=== PATIENT | female | born 1960 | race Asian ===

== ENCOUNTER → 2018-02-22 | Emergency (ER) | payer OTHER ==
[~2018-02-22] MED LIST: FAMOTIDINE 20 MG/50 ML IVPB 20 MG/50 ML MG IVPB ONE; MAG HYDROX/AL HYDROX/SIMETH -MYLANTA- ORAL SUSPENSION PO ONE; MAG HYDROX/AL HYDROX/SIMETH 30 ML UNIT-DOSE CUP ONE; MORPHINE SULFATE 2 MG/ML VIAL ONE; SODIUM CHLORIDE 1,000 ML IV STA; morphine CARPU-JECT 2 MG/1 ML DISP.SYRIN IVPUSH ONE
[2018-02-22 02:56] VITALS: PULSE 78; TEMP 98.5; BMI 26.4
[2018-02-22 03:05] VITALS: BP 145/88
--- NOTE | 2018-02-22 04:12 | PDOC ---
History of Present Illness - General Chief Complaint: Pain, Acute Stated Complaint: ABD PAIN Time Seen by Provider: 02/22/18 03:50 History Source: Patient Exam Limitations: No Limitations - History of Present Illness Travel History: No Initial Comments: 02/22/18 05:11 Best Contact: PCP:Dr. 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 Patient states shortly after having half heard dinner, she started having sharp 8/10 nonradiating intermittent discomfort to the epigastric and right lower quadrant. The pain is exacerbated on touch and alleviated at rest minimally. Patient denies nausea/vomiting, fever /chills/diarrhea, headache, dizziness or lightheadedness. Patient denies chest/ back pain, neck pain/stiffness, flank pains, urinary symptoms. Past History - Past Medical History Allergies/Adverse Reactions: Allergies Allergy/AdvReac Type Severity Reaction Status Date / Time No Known Allergies Allergy Verified 02/22/18 04:17 - Suicide/Smoking/Psychosocial Hx Smoking History: Never smoked Information on smoking cessation initiated: No Review of Systems - Review of Systems Able to Perform ROS?: Yes Comments:: 02/22/18 05:08 CONSTITUTIONAL: Absent: fever, chills, diaphoresis, generalized weakness, malaise, loss of appetite HEENT: Absent: rhinorrhea, nasal congestion, throat pain, throat swelling, difficulty swallowing, mouth swelling, ear pain, eye pain, visual Changes CARDIOVASCULAR: Absent: chest pain, loss of consciousness, palpitations, irregular heart rate, peripheral edema RESPIRATORY: Absent: cough, shortness of breath, dyspnea with exertion, orthopnea, wheezing, stridor, hemoptysis GASTROINTESTINAL: +epigastric pain/RLQ pain Absent: abdominal distension, nausea, vomiting, diarrhea, constipation, melena , hematochezia GENITOURINARY: Absent: dysuria, frequency, urgency, hesitancy, hematuria, flank pain, genital pain MUSCULOSKELETAL: Absent: myalgia, arthralgia, joint swelling SKIN: Absent: rash, itching, pallor HEMATOLOGIC/IMMUNOLOGIC: Absent: easy bleeding, easy bruising, lymphadenopathy, frequent infections ENDOCRINE: Absent: unexplained weight gain, unexplained weight loss, heat intolerance, cold intolerance NEUROLOGIC: Absent: headache, focal weakness or paresthesias, dizziness, unsteady gait, seizure, mental status changes, bladder or bowel incontinence PSYCHIATRIC: Absent: anxiety, depression, suicidal or homicidal ideation, hallucinations. 02/22/18 05:09 02/22/18 05:40 Is the patient limited Sinhala proficient: No *Physical Exam - Vital Signs Last Vital Signs Temp Pulse Resp BP Pulse Ox 98.5 F 78 18 145/88 98 02/22/18 03:00 02/22/18 03:00 02/22/18 03:00 02/22/18 03:00 02/22/18 03:00 - Physical Exam Comments: 02/22/18 05:09 GENERAL: Well developed, well nourished. Awake and alert. No acute distress. HEENT: Normocephalic, atraumatic. PERRLA, EOMI. No conjunctival pallor. Sclera are non- icteric. Moist mucous membranes. Oropharynx is clear. NECK: Supple. Full ROM. No JVD. Carotid pulses 2+ and symmetric, without bruits. No thyromegaly. No lymphadenopathy. CARDIOVASCULAR: Regular rate and rhythm. No murmurs, rubs, or gallops. Distal pulses are 2+ and symmetric. PULMONARY: No evidence of respiratory distress. Lungs clear to auscultation bilaterally. No wheezing, rales or rhonchi. ABDOMINAL: +epigastric pain, RLQ pain Soft. Non-distended. No rebound or guarding. No organomegaly. Normoactive bowel sounds. MUSCULOSKELETAL Normal range of motion at all joints. No bony deformities or tenderness. No CVA tenderness. EXTREMITIES: No cyanosis. No clubbing. No edema. No calf tenderness. SKIN: Warm and dry. Normal capillary refill. No rashes. No jaundice. NEUROLOGICAL: Alert, awake, appropriate. Cranial nerves 2-12 intact. No deficits to light touch and temperature in face, upper extremities and lower extremities. No motor deficits in the in face, upper extremities and lower extremities. Normoreflexic in the upper and lower extremities. Normal speech. Toes are down- going bilaterally. Gait is normal without ataxia. PSYCHIATRIC: Cooperative. Good eye contact. Appropriate mood and affect. 02/22/18 05:40 Moderate Sedation - Procedure Monitoring Vital Signs: Procedure Monitoring Vital Signs Temperature 98.5 F 02/22/18 03:00 Pulse Rate 78 02/22/18 03:00 Respiratory Rate 18 02/22/18 03:00 Blood Pressure 145/88 02/22/18 03:00 O2 Sat by Pulse Oximetry (%) 98 02/22/18 03:00 Heart Score/ECG Review - History History: Slightly suspicious - Electrocardiogram EKG: Normal - Age Age: >/= 65 - Risk Factors Based on the list above the patient has:: 1-2 risk factors - Troponin Troponin: </= normal limit - Score Heart Score - Total: 3 ED Treatment Course - LABORATORY CBC & Chemistry Diagram: 02/22/18 04:16 02/22/18 04:16 - RADIOLOGY Radiograph Interpretation: 02/22/18 05:54 CT abd /pelvis with iv contrast: no acaute findings Progress Note - Progress Note Progress Note: 0507hrs: Re examined pt; pain on 05/25 epigastric and RLQ *DC/Admit/Observation/Transfer Diagnosis at time of Disposition: Abdominal pain Qualifiers: Abdominal location: right lower quadrant Qualified Code(s): R10.31 - Right lower quadrant pain - Discharge Dispostion Disposition: HOME Condition at time of disposition: Stable Decision to Admit order: No - Referrals Referrals: Jose C Welsh MD [Primary Care Provider] - Ignacio Maldonado MD [Staff Physician] - - Patient Instructions Printed Discharge Instructions: DI for Abdominal Pain-Adult Additional Instructions: Be sure to follow-up with your physician and machine hand listed on your discharge Avoid acidic food Avoid overeating Return back to the ER for severe/persistent/worsening or recurrent pain or any concerns you might have - Post Discharge Activity Forms/Work/School Notes: Back to Work
[2018-02-22 04:54] LABS: BASO % 0.8 % (0-2.0); EOS % 1.4 % (0-4.5); HEMATOCRIT 40.1 % (32.4-45.2); HEMOGLOBIN 13.2 GM/dL (10.7-15.3); MCH 29.2 pg (25.7-33.7); MCHC 32.8 g/dl (32.0-36.0); MEAN CELL VOLUME 88.8 fl (80-96); MONO % 8.6 % (3.8-10.2); NEUT % 64.2 % (42.8-82.8); PLATELET COUNT 255 K/MM3 (134-434); RBC 4.51 M/mm3 (3.60-5.2); RDW 13.5 % (11.6-15.6)
[2018-02-22 05:34] LABS: ALBUMIN 3.7 g/dl (3.4-5.0); ALK PHOS 83 U/L (45-117); ANION GAP 9 MMOL/L (8-16); BILIRUBIN,TOTAL 0.3 mg/dL (0.2-1); BLOOD UREA NITROGEN 17 mg/dL (7-18); CALCIUM 8.5 mg/dL (8.5-10.1); CHLORIDE 103 mmol/L (98-107); CO2 27 mmol/L (21-32); CREATININE 0.6 mg/dL (0.55-1.3); GLUCOSE,RANDOM 97 mg/dL (74-106); LIPASE 178 U/L (73-393); POTASSIUM 3.6 mmol/L (3.5-5.1); SGOT/AST 27 U/L (15-37); SGPT/ALT 37 U/L (13-61); SODIUM 140 mmol/L (136-145); TOT PROT 7.2 g/dl (6.4-8.2)
--- NOTE | 2018-02-22 21:21 | EKG ---
Test Reason : Blood Pressure : / mmHG Vent. Rate : 082 BPM Atrial Rate : 082 BPM P-R Int : 170 ms QRS Dur : 088 ms QT Int : 412 ms P-R-T Axes : 057 025 038 degrees QTc Int : 481 ms NORMAL SINUS RHYTHM MINIMAL VOLTAGE CRITERIA FOR LVH, MAY BE NORMAL VARIANT NONSPECIFIC ST ABNORMALITY PROLONGED QT ABNORMAL ECG WHEN COMPARED WITH ECG OF 14-DEC-2004 13:27, QT HAS LENGTHENED Confirmed by BLAZE SIFUENTES, GLO ([id number]) on 02/22/2018 9:20:57 PM Referred By: Confirmed By:GLO THAKUR MD
== END | disposition home or self-care (01) ==
LOC: JER 02:48
PROC: 3E033GC Introduction of Other Therapeutic Substance into Peripheral Vein, Percutaneous Approach (ICD-10-PCS; principal; 2018-02-22)
PROC: 3E033NZ Introduction of Analgesics, Hypnotics, Sedatives into Peripheral Vein, Percutaneous Approach (ICD-10-PCS; 2018-02-22)
DX: R10.31 Right lower quadrant pain (principal)
CPT/HCPCS: 36415; 74177-TC; 80053; 82550; 83690; 84484; 85025; 93005; 93010; 99283-25; J7030

== ENCOUNTER 2018-05-14 06:09 | Day surgery (SDC) | payer OTHER ==
[2018-05-13 09:22] VITALS: BMI 25.4
[~2018-05-14 06:09] MED LIST changes: +ACETAMINOPHEN 325 MG TABLET (FP) PO PRN; +BSS (NA/CA/MG/K) BALANCED SALT SOLUTION OPHTH SOLN 15 ML BOTTLE OD ONE; +CHONDROITIN SU A/HYALUR SOD 1 KIT IO ONE; +EPINEPHrine/PF 1 MG/1 ML (1:1,000) AMPULE SQ ONE; -FAMOTIDINE 20 MG/50 ML IVPB 20 MG/50 ML MG IVPB ONE; +LIDOCAINE HCL 1% PRESERVATIVE FREE - 30ML VIAL IO ONE; -MAG HYDROX/AL HYDROX/SIMETH -MYLANTA- ORAL SUSPENSION PO ONE; -MAG HYDROX/AL HYDROX/SIMETH 30 ML UNIT-DOSE CUP ONE; -MORPHINE SULFATE 2 MG/ML VIAL ONE; +POVIDONE-IODINE 5% OPHTHALMIC PREP 30 ML SOLUTION OD ONE; -SODIUM CHLORIDE 1,000 ML IV STA; +TETRACAINE 0.5% OPHTH SOLN 2 ML BOTTLE OD ONE; -morphine CARPU-JECT 2 MG/1 ML DISP.SYRIN IVPUSH ONE
[2018-05-14] MEDS ORDERED: KETOROLAC TROMETHAMINE 0.5% EYE DROP 1 DROP DROPS ONE (06:23)
[2018-05-14] MEDS ORDERED: CYCLOPENTOLATE HCL 1% OPHTH SOLN 2 ML BOTTLE ONE (06:23)
[2018-05-14] MEDS ORDERED: TROPICAMIDE 1% OPHTH SOLN 15 ML BOTTLE ONE (06:23)
[2018-05-14] MEDS ORDERED: OFLOXACIN 0.3% OPHTHALMIC SOLUTION 5 ML BOTTLE ONE (06:23)
[2018-05-14 06:30] VITALS: TEMP 97.9
[2018-05-14] MEDS: PHENYLEPHRINE 2.5% OPHTH SOLN 15 ML BOTTLE OP SCH ×3 (06:40→07:21)
[2018-05-14] MEDS: CYCLOPENTOLATE HCL 1% OPHTH SOLN 2 ML BOTTLE OP SCH ×3 (06:43→07:19)
[2018-05-14] MEDS: TROPICAMIDE 1% OPHTH SOLN 15 ML BOTTLE OP SCH ×3 (06:43→07:20)
[2018-05-14] MEDS: OFLOXACIN 0.3% OPHTHALMIC SOLUTION 5 ML BOTTLE OP SCH ×3 (06:43→07:20)
[2018-05-14] MEDS: KETOROLAC TROMETHAMINE 0.5% EYE DROP 1 DROP DROPS OP SCH ×3 (06:43→07:20)
[2018-05-14] MEDS ORDERED: MIDAZOLAM HCL 2 MG/2 ML SINGLE DOSE VIAL ONE (07:40)
[2018-05-14] MEDS ORDERED: TETRACAINE 0.5% OPHTH SOLN 2 ML BOTTLE OD ONE (08:12)
[2018-05-14] MEDS ORDERED: POVIDONE-IODINE 5% OPHTHALMIC PREP 30 ML SOLUTION OD ONE (08:13)
[2018-05-14] MEDS ORDERED: LIDOCAINE HCL 1% PRESERVATIVE FREE - 30ML VIAL IO ONE (08:22)
[2018-05-14] MEDS ORDERED: CHONDROITIN SU A/HYALUR SOD 1 KIT IO ONE (08:22)
[2018-05-14] MEDS ORDERED: BSS (NA/CA/MG/K) BALANCED SALT SOLUTION OPHTH SOLN 15 ML BOTTLE OD ONE (08:22)
[2018-05-14] MEDS ORDERED: EPINEPHrine/PF 1 MG/1 ML (1:1,000) AMPULE SQ ONE (08:28)
[2018-05-14] MEDS ORDERED: ACETAMINOPHEN 325 MG TABLET (FP) ONE (08:58)
[2018-05-14 12:18] VITALS: BP 121/65; PULSE 64
--- NOTE | 2018-05-15 00:35 | OP ---
DATE OF OPERATION: 05/14/2018 OPERATION: Phacoemulsification of right cataract with posterior chamber intraocular lens implantation. Lens used [id number], 22.5 Diopter power, Serial No. [id number]. PREOPERATIVE DIAGNOSIS: Cataract, right eye. POSTOPERATIVE DIAGNOSIS: Cataract, right eye. SURGEON: Virginia Martínez M.D. ANESTHESIA: Topical MAC. COMPLICATIONS: None. PROCEDURE: The patient was brought to the operating room and correctly identified along with the operative site and the correct intraocular lens liang. The patient was then prepped and draped in the usual sterile fashion including 5% Betadine solution in the conjunctival sac and an eyelid drape. An eyelid speculum was then placed in the eye. A paracentesis port was created and approximately 0.5 mL of preservative free Lidocaine was then injected into the eye. Viscoelastic was then injected to inflate the anterior chamber. A temporal clear corneal wound was created. A continuous circular capsulorrhexis was performed. The nucleus was then hydrodissected with BSS and removed with phacoemulsification. The remaining cortical material was irrigated and aspirated. Viscoelastic was injected to inflate the capsular bag and the intraocular lens was then implanted into the capsular bag. The remaining Viscoelastic was irrigated and aspirated from the eye. The IOL was noted to be well centered and completely covered by the anterior capsulorrhexis. Topical vancomycin was placed and the eye patched and shielded. All wounds were tested and found to be watertight. No suture was placed. The eye was then shielded. The patient was then discharged from the operating room in stable condition. VIRGINIA MARTÍNEZ M.D. [id number]
== END 2018-05-14 10:30 | disposition home or self-care (01) ==
LOC: JASU-SURG 06:09
PROVIDERS: ATTEND Ophthalmology
PROC: 085J3ZZ Destruction of Right Lens, Percutaneous Approach (ICD-10-PCS; principal; 2018-05-14 08:00)
DX: H26.9 Unspecified cataract (principal)

== ENCOUNTER 2019-02-07 16:08 | Emergency (ER) | payer OTHER ==
[2019-02-07 16:40] VITALS: BP 136/93; PULSE 67; TEMP 98.3; BMI 26.7
[2019-02-07] MEDS ORDERED: DIPHTH,PERTUSS(ACELL),TET 0.5 ML DISP.SYRIN IM ONE ×2 (17:00→17:57)
--- NOTE | 2019-02-07 17:25 | PDOC ---
Documentation entered by Vilma Abebe SCRIBE, acting as scribe for Jorge Gutiérrez MD. Jorge Gutiérrez MD: This documentation has been prepared by the Mis mckinley Joy, SCRIBE, under my direction and personally reviewed by me in its entirety. I confirm that the documentation accurately reflects all work, treatment, procedures, and medical decision making performed by me. 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 As per patient she was walking her dog down a hill when her dog tugged at the leash, causing her to fall forward. Patient states that she landed her bilateral knees and caught herself with her hands. However, she still hit her chin against the ground. Denies LOC. Pt was able to get up afterwards on her own. She now complains of pain in her chin, head, and neck. Patient endorses taking Tylenol (500 mg) with slight relief. Patient notes her last tetanus shot was more than 10 years ago. Denies numbness, weakness, shortness of breath, chest pain, abdominal pain. Denies any other symptoms. Allergies: Sulfamethoxazole, trimethoprim. Past History - Past Medical History Allergies/Adverse Reactions: Allergies Allergy/AdvReac Type Severity Reaction Status Date / Time sulfamethoxazole Allergy Rash Verified 05/14/18 06:26 [From Bactrim] trimethoprim [From Bactrim] Allergy Rash Verified 05/14/18 06:26 Home Medications: Ambulatory Orders Grape Seed Extract [Grape Seed] 90 mg PO BID 05/13/18 [place]-3 Fatty Acids [[place]-3] 1,000 mg PO DAILY 05/13/18 Asthma: Yes ( A CHILD) COPD: No - Surgical History Cholecystectomy: Yes (AND GALL STONES) Orthopedic Surgery: Yes (FX TIBIA AND FIBULA) - Psycho Social/Smoking Cessation Hx Smoking History: Never smoked Have you smoked in the past 12 months: No Information on smoking cessation initiated: No Hx Alcohol Use: No Drug/Substance Use Hx: No Substance Use Type: None Review of Systems - Review of Systems Able to Perform ROS?: Yes Comments:: 02/07/19 17:11 GENERAL/CONSTITUTIONAL: No fever or chills. No weakness. HEAD, EYES, EARS, NOSE AND THROAT: + chin pain, head pain. No change in vision. No ear pain or discharge. No sore throat. CARDIOVASCULAR: No chest pain, no shortness of breath, no loss of consciousness RESPIRATORY: No cough, wheezing, or hemoptysis. GASTROINTESTINAL: No nausea, vomiting, diarrhea or constipation. GENITOURINARY: No dysuria, frequency, or change in urination. MUSCULOSKELETAL: + neck pain. No joint or muscle swelling or pain. SKIN: No rash NEUROLOGIC: No vertigo, no change in strength/sensation. ENDOCRINE: No increased thirst. No abnormal weight change. HEMATOLOGIC/LYMPHATIC: No anemia, easy bleeding, or history of blood clots. ALLERGIC/IMMUNOLOGIC: No hives or skin allergy. *Physical Exam - Vital Signs Last Vital Signs Temp Pulse Resp BP Pulse Ox 98.3 F 67 20 136/93 100 02/07/19 16:09 02/07/19 16:09 02/07/19 16:09 02/07/19 16:09 02/07/19 16:09 - Physical Exam Comments: 02/07/19 17:12 GENERAL: Awake, alert, and fully oriented, in no acute distress. HEAD: + abrasion to chin, no lac EYES: PERRLA, EOMI, sclera anicteric, conjunctiva clear ENT: Auricles normal inspection, hearing grossly normal, nares patent, oropharynx clear without exudates. Moist mucosa NECK: + paraspinal C-spine TTP, no stepoffs, Normal ROM, supple, no lymphadenopathy, JVD, or masses LUNGS: Breath sounds equal, clear to auscultation bilaterally. No wheezes, and no crackles HEART: Regular rate and rhythm, normal S1 and S2, no murmurs, rubs or gallops ABDOMEN: Soft, nontender, normoactive bowel sounds. No guarding, no rebound. No masses EXTREMITIES: + bilateral knee abrasions, with mild joint effusion L>R, normal ROM, No clubbing or cyanosis NEUROLOGICAL: Cranial nerves II through XII intact. 5/5 strength and sensation in all extremities, Normal speech, normal gait, normal cerebellar function SKIN: Warm, Dry, normal turgor, no rashes or lesions noted. Medical Decision Making - Medical Decision Making 02/07/19 17:31 59 F with fall after being pulled by dog. - CT head/c-spine/facial bones - XR bilateral knees - Tdap 02/07/19 18:50 CTs unremarkable XRs negative on my read Pt is well appearing, with normal vitals. Clinically stable for DC at this time. I discussed the physical exam findings, ancillary test results and final diagnoses with the patient. I answered all of the patient's questions. The patient was satisfied with the care received and felt comfortable with the discharge plan and treatment plan. The patient agrees to follow up with the primary care physician within 24-72 hours. Discharge - Discharge Information Problems reviewed: Yes Clinical Impression/Diagnosis: Fall, Knee pain, Head pain Disposition: HOME - Follow up/Referral - Patient Discharge Instructions Patient Printed Discharge Instructions: DI for Closed Head Injury Additional Instructions: Take tylenol or motrin as needed for pain. If you experience worsening headache, neck pain, weakness/numbness in any extremity, worsening pain or swelling in your knees, difficulty walking or bearing weight, or any other concerning symptoms, return to the ER immediately. Otherwise, follow up with your primary doctor within 1 week. - Post Discharge Activity Work/Back to School Note: Back to Work
== END 2019-02-07 19:04 | disposition home or self-care (01) ==
LOC: FER 16:08
PROC: 3E0234Z Introduction of Serum, Toxoid and Vaccine into Muscle, Percutaneous Approach (ICD-10-PCS; principal; 2019-02-07)
DX: M25.561 Pain in right knee (principal); M25.562 Pain in left knee; R51 Headache; W18.39XA Other fall on same level, initial encounter; Y93.K1 Activity, walking an animal; Y92.89 Other specified places as the place of occurrence of the external cause; Z88.2 Allergy status to sulfonamides; Z88.8 Allergy status to other drugs, medicaments and biological substances
CPT/HCPCS: 70450-TC; 70486-TC; 72125-TC; 72170-TC-FY; 73562-TC-LT-FY; 73562-TC-RT-FY; 90715; 99282-25

== ENCOUNTER 2019-09-16 04:54 | Inpatient (IN) | payer OTHER ==
--- NOTE | 2019-09-16 05:08 | PDOC ---
History of Present Illness - General Chief Complaint: Headache Stated Complaint: WEAKNESS RIGHT ARM AND LEG/HEADACHE Time Seen by Provider: 09/16/19 05:01 - History of Present Illness Initial Comments: 09/16/19 05:11 This 59-year-old woman with no significant past medical history presents with 2- hour history of right-sided weakness/numbness and left-sided headache. She was feeling well when she went to sleep at 12 midnight; she awakened at 3 AM with current symptoms. She describes decreased sensation in the right arm and right leg with difficulty in walking to the bathroom when she awakened secondary to right leg weakness. She locates left-sided headache in temporal/parietal area , 6/10 intensity. No previous history of extremity weakness/numbness. Patient had no history of coronavirus infection; states that she had recently been tested COVID negative Other than feeling mild muscle cramping yesterday (patient states that she had recently started lifting weights) for which she had taken ibuprofen, she had no new health issues recently. No recent fever/chills, chest pain/shortness of breath/cough, abdominal pain, nausea/vomiting/diarrhea. Asthma as a child; no recent exacerbations History of laparoscopic cholecystectomy No daily medications Allergies: Bactrim Non-smoker; no daily alcohol/other recreational drugs Works as RN at [employer] Past History - Medical History Allergies/Adverse Reactions: Allergies Allergy/AdvReac Type Severity Reaction Status Date / Time sulfamethoxazole Allergy Rash Verified 05/14/18 06:26 [From Bactrim] trimethoprim [From Bactrim] Allergy Rash Verified 05/14/18 06:26 Home Medications: Ambulatory Orders NK [No Known Home Medication] 09/16/19 Asthma: Yes ( A CHILD) COPD: No - Surgical History Cholecystectomy: Yes (AND GALL STONES) Orthopedic Surgery: Yes (FX TIBIA AND FIBULA) - Psycho-Social/Smoking History Smoking History: Never smoked Have you smoked in the past 12 months: No Review of Systems - Review of Systems Able to Perform ROS?: Yes Comments:: 12 point review of systems is negative except for what is noted in the history of present illness *Physical Exam - Physical Exam GENERAL: Adult female, alert and oriented x3, no acute distress HEAD: Normal with no signs of trauma. EYES: PERRLA, EOMI, sclera anicteric, conjunctiva clear. ENT: Ears normal, nares patent, oropharynx clear without exudates. Moist mucous membranes. NECK: Normal range of motion, supple without lymphadenopathy, JVD, or masses. LUNGS: Breath sounds equal, clear to auscultation bilaterally. No wheezes, and no crackles. HEART:Regular rate and rhythm, normal S1 and S2 without murmur, rub or gallop. ABDOMEN:.normal bowel sounds No guarding,tenderness or rebound.No masses No distention. EXTREMITIES: Normal range of motion, no edema. No clubbing or cyanosis. No erythema, or tenderness. NEUROLOGICAL: Cranial nerves II through XII intact bilaterally. Pupils 3 mm, equal and reactive; normal speech. no dysarthria Positive pronator drift of right arm;5/5 air sampling and monitoring strength of arms bilaterally 4/5 hip flexor of right leg, 4/5 dorsiflexion of right ankle; 5/5 strength leg throughout Decreased fine touch right arm/right leg throughout as compared to left side SKIN: Warm, Dry, normal turgor, no rashes or lesions noted. Twelve-lead electrocardiogram is performed: Normal sinus rhythm at 61 bpm; axis, intervals and waveforms are all normal ED Treatment Course - LABORATORY CBC & Chemistry Diagram: 09/16/19 05:40 09/16/19 05:40 Medical Decision Making - Medical Decision Making 09/16/19 05:25 As noted above, this otherwise healthy 59-year-old woman presents with history of awakening at 3 AM with left-sided headache and decreased strength in right leg/decreased sensation in right arm and right leg. No previous history of neurologic issues. Exam as noted Stat noncontrast head CT, stroke protocol, R/O CVA ordered CBC, chemistry profile, INR, troponin sent 09/16/19 05:38 Patient complaining of vertigo and left sided facial numbness; on examination, she now has nystagmus (leftward gaze) 09/16/19 06:[address], stroke protocol performed and preliminary report from Imaging business continuity manager: No evidence of acute pathology Patient has become nauseated, with 2 episodes of vomiting partially digested m aterial Vertigo continues and she states that she has "buzzing" in her ears Zofran 4 mg IV given 09/16/19 06:[address] Tripp, on-call for neurology, consult called 09/16/19 06:[address] Tripp by phone: Suggests ordering MRI (stroke protocol); Dr Marvin will see patient later Case Signed out to Dr Almonte at end of shift Discharge - Discharge Information Problems reviewed: Yes Clinical Impression/Diagnosis: Cerebrovascular accident (CVA) Qualifiers: CVA mechanism: unspecified Qualified Code(s): I63.9 - Cerebral infarction, unspecified - Follow up/Referral - Patient Discharge Instructions - Post Discharge Activity
[2019-09-16 05:10] VITALS: BMI 26.9
[2019-09-16] MEDS ORDERED: ONDANSETRON 4 MG/2 ML VIAL IVPUSH ONE ×2 (06:03→21:56)
[2019-09-16] MEDS ORDERED: ONDANSETRON 4 MG/2 ML VIAL ONE ×3 (06:04→22:01)
[2019-09-16 06:05] LABS: BASO % 0.7 % (0-2.0); EOS % 2.7 % (0-4.5); HEMATOCRIT 38.3 % (32.4-45.2); HEMOGLOBIN 12.6 GM/dL (10.7-15.3); MCH 29.1 pg (25.7-33.7); MCHC 32.9 g/dl (32.0-36.0); MEAN CELL VOLUME 88.5 fl (80-96); MEAN PLT VOLUME 7.4 fl (7.5-11.1); MONO % 8.9 % (3.8-10.2); NEUT % 54.7 % (42.8-82.8); PLATELET COUNT 260 K/MM3 (134-434); RBC 4.33 M/mm3 (3.60-5.2); RDW 13.9 % (11.6-15.6); WHITE BLOOD COUNT 6.3 K/mm3 (4.0-10.0)
--- NOTE | 2019-09-16 07:16 | PDOC ---
*Physical Exam - Vital Signs Last Vital Signs Temp Pulse Resp BP Pulse Ox 60 14 165/83 95 09/16/19 05:45 09/16/19 05:45 09/16/19 05:45 09/16/19 05:45 ED Treatment Course - LABORATORY CBC & Chemistry Diagram: 09/16/19 05:40 09/16/19 05:40 - ADDITIONAL ORDERS Additional order review: Laboratory Results 09/16/19 05:40 Creatine Kinase 93 Troponin I < 0.02 09/16/19 05:40 RBC 4.33 MCV 88.5 MCHC 32.9 RDW 13.9 MPV 7.4 L Neutrophils % 54.7 Lymphocytes % 33.0 Monocytes % 8.9 Eosinophils % 2.7 Basophils % 0.7 - Medications Given in the ED: ED Medications Discontinued Medications Generic Name Dose Route Start Last Admin Trade Name Freq PRN Reason Stop Dose Admin Ondansetron HCl 4 mg 09/16/19 06:03 09/16/19 06:16 Zofran Injection IVPUSH 09/16/19 06:04 4 mg ONCE ONE Administration Medical Decision Making - Medical Decision Making 09/16/19 10:14 Patient still with mild left-sided headache, but neurologically and hemodynamically stable. Initial CT was negative, but MRI shows multiple acute infarcts, including a large cerebellar lesion. Dr. Tripp, neurologist, was paged. he is aware of the patient from a phone consultation last night by Dr. Thompson. The case was discussed and he recommended full dose aspirin, and admission for further work-up. Dr. Welsh, the primary physician, was contacted by phone. He will admit the patient to telemetry at [facility], coordinating work-up with Dr. Tripp. Arrangements for transport. 09/16/19 14:15 Patient awaiting transferred. Clinically and hemodynamically stable. No further neurologic deficits. Discharge - Discharge Information Problems reviewed: Yes Clinical Impression/Diagnosis: Cerebrovascular accident (CVA) Qualifiers: CVA mechanism: unspecified Qualified Code(s): I63.9 - Cerebral infarction, unspecified - Admission Yes - Follow up/Referral - Patient Discharge Instructions - Post Discharge Activity
[2019-09-16 07:56] LABS: ALBUMIN 3.6 g/dl (3.4-5.0); ALK PHOS 92 U/L (45-117); ANION GAP 8 MMOL/L (8-16); BILIRUBIN,TOTAL 0.2 mg/dL (0.2-1); BLOOD UREA NITROGEN 16.3 mg/dL (7-18); CHLORIDE 105 mmol/L (98-107); CO2 28 mmol/L (21-32); CREATININE 0.6 mg/dL (0.55-1.3); GLUCOSE,RANDOM 111 mg/dL (74-106); POTASSIUM 3.6 mmol/L (3.5-5.1); SGOT/AST 17 U/L (15-37); SGPT/ALT 32 U/L (13-61); SODIUM 141 mmol/L (136-145)
[2019-09-16 08:15] LABS: INR 0.86 (0.83-1.09); PROTHROMBIN TIME (PATIENT) 10.1 SEC (9.7-13.0)
[2019-09-16] MEDS ORDERED: ASPIRIN 325 MG TABLET PO ONE (10:12)
[2019-09-16] MEDS ORDERED: ASPIRIN 325 MG TABLET ONE (10:14)
--- NOTE | 2019-09-16 10:39 | EKG ---
Test Reason : Blood Pressure : / mmHG Vent. Rate : 061 BPM Atrial Rate : 061 BPM P-R Int : 154 ms QRS Dur : 094 ms QT Int : 418 ms P-R-T Axes : 029 025 031 degrees QTc Int : 420 ms NORMAL SINUS RHYTHM NORMAL ECG WHEN COMPARED WITH ECG OF 22-FEB-2018 04:28, QT HAS SHORTENED Confirmed by John Knowles MD ([id number]) on 09/16/2019 10:39:15 AM Referred By: TEO FIGUEROA Confirmed By:John Knowles MD
[2019-09-16] MEDS ORDERED: ATORVASTATIN CA 40 MG TABLET (FP) PO ONE (11:05)
[2019-09-16] MEDS ORDERED: ACETAMINOPHEN 325 MG TABLET (FP) PO ONE (11:05)
[2019-09-16] MEDS ORDERED: ATORVASTATIN CA 20 MG TABLET (FP) ONE (11:07)
[2019-09-16] MEDS ORDERED: ACETAMINOPHEN 325 MG TABLET (FP) ONE (11:07)
[2019-09-16 11:59] LABS: CHOLESTEROL 207 mg/dL (50-200); HDL CHOLESTEROL 53 mg/dL (40-60); LDL CHOLESTEROL (ONLY SJRH) 139 mg/dL (5-100); TRIGLYCERIDES 90 mg/dL (0-150)
[2019-09-16] MEDS ORDERED: ONDANSETRON 4 MG/2 ML VIAL IVPB ONE (14:20)
--- NOTE | 2019-09-16 14:27 | HP ---
Admitting History and Physical - Admission History of Present Illness: 59-year-old woman with no significant past medical history presents with 2-hour history of right-sided weakness/numbness and left-sided headache. She was feeling well when she went to sleep at 12 midnight; she awakened at 3 AM with current symptoms. She describes decreased sensation in the right arm and right leg with difficulty in walking to the bathroom when she awakened secondary to right leg weakness. She locates left-sided headache in temporal/parietal area , 6/10 intensity. No previous history of extremity weakness/numbness. Patient had no history of coronavirus infection; states that she had recently been tested COVID negative Other than feeling mild muscle cramping yesterday (patient states that she had recently started lifting weights) for which she had taken ibuprofen, she had no new health issues recently. No recent fever/chills, chest pain/shortness of breath/cough, abdominal pain, nausea/vomiting/diarrhea. - Past Medical History Cardiovascular: Yes: Hyperlipdemia. No: AFIB Pulmonary: Yes: Asthma (as a child) - Smoking History Smoking history: Never smoked Have you smoked in the past 12 months: No - Alcohol/Substance Use Hx Alcohol Use: No Home Medications - Allergies Allergies/Adverse Reactions: Allergies Allergy/AdvReac Type Severity Reaction Status Date / Time sulfamethoxazole Allergy Rash Verified 05/14/18 06:26 [From Bactrim] trimethoprim [From Bactrim] Allergy Rash Verified 05/14/18 06:26 - Home Medications Home Medications: Ambulatory Orders NK [No Known Home Medication] 09/16/19 Review of Systems - Review of Systems Neck: reports: No Symptoms Cardiovascular: denies: Chest Pain, Palpitations Respiratory: denies: Cough, SOB Gastrointestinal: reports: No Symptoms Genitourinary: reports: No Symptoms Musculoskeletal: reports: Extremity Pain, Muscle Weakness Neurological: reports: Headache, Unsteady Gait, Weakness. denies: Change in Speech Physical Examination Vital Signs: Vital Signs Temperature Pulse Rate 87 09/16/19 11:25 Respiratory Rate 18 09/16/19 11:25 Blood Pressure 148/87 09/16/19 11:25 O2 Sat by Pulse Oximetry (%) 97 09/16/19 11:25 Cardiovascular: Yes: Regular Rate and Rhythm Respiratory: Yes: Regular, CTA Bilaterally Gastrointestinal: Yes: Normal Bowel Sounds, Soft. No: Tenderness Edema: No Neurological: Yes: Alert, Oriented, Babinski negative, Weakness Labs: CBC, BMP 09/16/19 05:40 09/16/19 05:40 Imaging - Results Cat Scan: Report Reviewed MRI: Report Reviewed EKG: Report Reviewed Problem List - Problems (1) Cerebrovascular accident (CVA) Assessment/Plan: ASA STATIN B-BLOCKERS NEURO AND CARDIO TELE MONITORING ECHO AND CAROTID LABS ORDERED R/O EMBOLIC ETIOLOGY COVID TESTING SWAB AND IGG Code(s): I63.9 - CEREBRAL INFARCTION, UNSPECIFIED Qualifiers: CVA mechanism: unspecified Qualified Code(s): I63.9 - Cerebral infarction, unspecified (2) HLD (hyperlipidemia) Assessment/Plan: ON STATIN Code(s): E78.5 - HYPERLIPIDEMIA, UNSPECIFIED
[2019-09-16] MEDS ORDERED: ACETAMINOPHEN 1000 MG/100 ML VIAL (NON FORMULARY) IVPB ONE (21:56)
[2019-09-16] MEDS ORDERED: ACETAMINOPHEN INJECTION 100 ML IVPB ONE (22:02)
[2019-09-16] MEDS: metoPROLOL SUCCINATE 25 MG TAB.SR.24H (FP) PO SCH (22:24)
[2019-09-16] MEDS: HEPARIN NA (PORCINE) 5,000 UNITS/ML 1ML VIAL SQ SCH (22:24)
--- NOTE | 2019-09-16 22:54 | CON.NEURO ---
Consult - Past Medical History Cardio/Vascular: Yes: Hyperlipdemia. No: AFIB Pulmonary: Yes: Asthma (as a child) - Alcohol/Substance Use Hx Alcohol Use: No - Smoking History Smoking history: Never smoked Have you smoked in the past 12 months: No Home Medications - Allergies Allergies/Adverse Reactions: Allergies Allergy/AdvReac Type Severity Reaction Status Date / Time sulfamethoxazole Allergy Rash Verified 05/14/18 06:26 [From Bactrim] trimethoprim [From Bactrim] Allergy Rash Verified 05/14/18 06:26 - Home Medications Home Medications: Ambulatory Orders NK [No Known Home Medication] 09/16/19 Physical Exam-Neuro Vital Signs: Vital Signs Temperature 98.0 F 09/16/19 18:35 Pulse Rate 79 09/16/19 18:35 Respiratory Rate 18 09/16/19 18:35 Blood Pressure 144/86 09/16/19 18:35 O2 Sat by Pulse Oximetry (%) 100 09/16/19 15:25 Labs: CBC, BMP 09/16/19 05:40 09/16/19 05:40 INR, PTT INR 0.86 (0.83-1.09) 09/16/19 05:40 Assessment/Plan cc Right arm and leg numbness and weakness( Patient was seen at [place] [facility] for Dr ORNELAS) HPI 59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 She went to bed on september 14 , she was fine. She woke up in morning of september 15, and she has numbness and weakness. sEH ALSO AHVE DIFFICULTY OF WALKING.She also have headhace and feeling dizziness. She was recently tested covid negative. Patient was feeling spinning senstion. Her ct head negative her mri of brain showed multiple lobe and bihemispheric stroke. There is no evidence of joint pain, skin reaction PMH HLD, Asthma Allergies/Adverse Reactions: Allergies Allergy/AdvReac Type Severity Reaction Status Date / Time sulfamethoxazole Allergy Rash Verified 05/14/18 06:26 [From Bactrim] trimethoprim [From Bactrim] Allergy Rash Verified 05/14/18 06:26 FH,SH,ROS is wnl NEUROLOGICAL EXAMINATION Alert oriented x 3, neck is supple vss eomi, pupils reactive no face asymmetry There is mild sensory dysthesia on right arm and leg very minimal weakness of right arm and leg weakness( seems to be resolvign ct head unremarkable mri of brain showed bihemispheric , multi lobar acute/subacute ischemic changes Assessment/plan 59 year old female , with history of HLD, Ashma.came with right arm and leg weakness and numbness and symptoms seems to be resolving. carotid ultrasound is normal, no atrial fibrillation, mri of brain showed multi lobar and bihemispheric subacute /acute ischemic stroke. Plan: continue apsirin and statin - jail manager for cardiac work up for cardiac course of thromboemoblic episodes, would need echo and MIRTA - mra of brain - pt, speech and dvt prophylaxis - She may need tele monitoring and loop recorder outpatient - 35 minute spent doing critical care - esr, yunior, c reactive protein ( inflmmatory biomarker ) can also be obtained, clincally less likely to be vasculitis - she may need hypercoagubility work up if other work up has been negative Thanking you so much Leonard Marvin MD
[2019-09-17 07:18] LABS: ALBUMIN 3.4 g/dl (3.4-5.0); BLOOD UREA NITROGEN 9.8 mg/dL (7-18); CALCIUM 8.9 mg/dL (8.5-10.1); CREATININE 0.6 mg/dL (0.55-1.3); POTASSIUM 3.6 mmol/L (3.5-5.1); TOT PROT 6.9 g/dl (6.4-8.2)
[2019-09-17] MEDS ORDERED: ACETAMINOPHEN 325 MG TABLET (FP) ONE ×2 (08:28→13:50)
[2019-09-17] MEDS: metoPROLOL SUCCINATE 25 MG TAB.SR.24H (FP) PO SCH ×3 (08:29→22:11)
[2019-09-17] MEDS: POLYETHYLENE GLYCOL 3350 119 GM BTL PO SCH ×2 (08:30→09:00)
[2019-09-17] MEDS: ASPIRIN COATED 81 MG TABLET.EC PO SCH ×2 (08:30→09:00)
[2019-09-17] MEDS: HEPARIN NA (PORCINE) 5,000 UNITS/ML 1ML VIAL SQ SCH ×4 (08:30→23:23)
--- NOTE | 2019-09-17 08:44 | PN ---
Progress Note, Physician - Current Medication List Current Medications: Active Medications Aspirin (Ecotrin -) 81 mg PO DAILY [facility] Last Admin: 09/17/19 08:30 Dose: 81 mg Documented by: Heparin Sodium (Porcine) (Heparin -) 5,000 unit SQ BID [facility] Last Admin: 09/17/19 08:30 Dose: 5,000 unit Documented by: Metoprolol Succinate (Toprol Xl -) 12.5 mg PO BID [facility] Last Admin: 09/17/19 08:29 Dose: 12.5 mg Documented by: Polyethylene Glycol (Miralax (For Daily Use) -) 17 gm PO DAILY [facility] Last Admin: 09/17/19 08:30 Dose: 17 gm Documented by: - Objective Vital Signs: Vital Signs Temperature 98.1 F 09/17/19 01:21 Pulse Rate 76 09/17/19 05:56 Respiratory Rate 18 09/17/19 05:56 Blood Pressure 140/62 09/17/19 05:56 O2 Sat by Pulse Oximetry (%) 100 09/16/19 21:00 Cardiovascular: Yes: Regular Rate and Rhythm Respiratory: Yes: Regular, CTA Bilaterally Gastrointestinal: Yes: Normal Bowel Sounds, Soft Labs: CBC, BMP 09/16/19 05:40 09/17/19 05:57 INR, PTT INR 0.86 (0.83-1.09) 09/16/19 05:40 Fibrinogen 332.0 mg/dL (238-498) 09/17/19 05:57 Problem List - Problems (1) Cerebrovascular accident (CVA) Assessment/Plan: ASA STATIN B-BLOCKERS NEURO AND CARDIO TELE MONITORING ECHO AND CAROTID LABS ORDERED R/O EMBOLIC ETIOLOGY COVID TESTING SWAB AND IGG Code(s): I63.9 - CEREBRAL INFARCTION, UNSPECIFIED Qualifiers: CVA mechanism: unspecified Qualified Code(s): I63.9 - Cerebral infarction, unspecified (2) HLD (hyperlipidemia) Assessment/Plan: ON STATIN Code(s): E78.5 - HYPERLIPIDEMIA, UNSPECIFIED
--- NOTE | 2019-09-17 10:00 | CONSULT ---
Admitting History and Physical - Primary Care Physician PCP: Jose C Welsh - Admission History of Present Illness: pER emr- 59-year-old woman with no significant past medical history presents with 2-hour history of right-sided weakness/numbness and left-sided headache. She was feeling well when she went to sleep at 12 midnight; she awakened at 3 AM with current symptoms. She describes decreased sensation in the right arm and right leg with difficulty in walking to the bathroom when she awakened secondary to right leg weakness. She locates left-sided headache in temporal/parietal area , 6/10 intensity. No previous history of extremity weakness/numbness. Patient had no history of coronavirus infection; states that she had recently been tested COVID negative Other than feeling mild muscle cramping yesterday (patient states that she had recently started lifting weights) for which she had taken ibuprofen, she had no new health issues recently. No recent fever/chills, chest pain/shortness of breath/cough, abdominal pain, nausea/vomiting/diarrhea. ct head negative mri of brain showed multiple lobe and bihemispheric strokeS Passed Dysphagia screens- Reg diet/thin liquids ordered Selected Entries 09/16/19 09/16/19 09/16/19 05:06 05:24 05:41 Temperature Blood Pressure 170/87 Blood Pressure 176/101 H 178/85 H [Left] 09/16/19 09/16/19 09/16/19 05:45 07:00 07:41 Temperature Blood Pressure Blood Pressure 165/83 150/69 144/81 [Left] 09/16/19 09/16/19 09/16/19 10:02 11:25 15:25 Temperature Blood Pressure Blood Pressure 159/88 148/87 134/77 [Left] 09/16/19 09/16/19 09/16/19 15:38 18:35 22:35 Temperature 98.3 F 98.0 F 98.8 F Blood Pressure 131/68 144/86 167/94 Blood Pressure [Left] 09/17/19 09/17/19 01:21 05:56 Temperature 98.1 F Blood Pressure 131/67 140/62 Blood Pressure [Left] Laboratory Tests 09/16/19 09/16/19 05:40 10:28 WBC 6.3 COVID-19 (RAMÓN) Pending History Source: Patient Limitations to Obtaining History: No Limitations - Past Medical History Cardiovascular: Yes: Hyperlipdemia. 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 - Admission Reason For Visit: WEAKNESS RIGHT ARM AND LEG/HEADACHE - Diagnostics X-ray: Report Reviewed CT Scan: Report Reviewed MRI: Report Reviewed - General Mental Status: Alert and Oriented, Awake and Alert, Able to Follow Commands Attention: Intact Ability to Follow Directions: Excellent Head/Neck Control: WFL - Hearing Hearing: Normal Speech Evaluation - Communication Primary Language: SLOV[place] Communication: Yes: Within Normal Limits (Mildly delayed rate of response) - Speech Production Able to Make Needs Known: Yes: WNL Intelligibility: Yes: WNL - Speech Characteristics Voice Loudness: Normal Voice Pitch: Yes: Normal Voice Phonatory-based Quality: Yes: Normal Speech Pattern: Normal Speech Clarity: < 100% Nasal Resonance: Normal Articulation: Yes: Precise - Language/Auditory Comprehension Follows: Yes: 2 Stage Simple Commands Observation: Able to respond to yes/no queries: Yes, Yes/No Confusion: No, Comprehends Conversational Speech: Yes - Language/Verbal Expression Able to Respond to Simple Queries: Yes: WNL Able to Communicate Wants and Needs: Yes: WNL Functional Communication Status: Yes: WNL - Swallow Evaluation/Bedside Assessment Current Nutritional Intake: Regular, Thin Liquids, Other (Has not had breakfast. Was nauseated ealier. Feeling better.) Oral Secretions: Yes: WFL Dentition: Yes: Adequate Facial Symmetry at Rest: Symmetrical Facial Symmetry on Retraction: Symmetrical Facial Movement: Controlled Against Resistance Opening: Normal Against Resistance Closing: Normal Pucker Lips: Normal Smile: Normal Lingual Movement: Normal Lingual Speed of Movement: Normal Lingual Movement Strgth Against Opposition: Normal Lingual Movement Characteristics: Normal Velopharyngeal Movement: Normal Laryngeal Elevation: WFL Laryngeal Movement: Able to Palpate Rate of Intake: WFL Bolus Size: WFL Labial Seal: WFL Chewing: WFL Oral Prep Time: WFL A-P Transit: WFL Pocketing: None Coughing/Throat Clear: No Change in Voice: No Recommendations - Speech Evaluation, Impression/Plan Impression: Mildly delayed rate of verbal response. (Reportedly "baseline"?). No Dysarthria. - Dysphagia Impressions/Plan Swallowing Skills: WF Dysphagia Impressions: No Impairment *Silent aspiration: cannot be R/O at bedside Recommendations: Other (Monitor PO tolerance) - Recommendations Diet Consistency: Regular Medication Administration: Whole with water Liquids: Thin Liquids
--- NOTE | 2019-09-17 10:29 | CON.CARD ---
Consult Consult Specialty:: Cardiology Referred by:: Blaise Reason for Consultation:: cva - History of Present Illness Chief Complaint: cva History of Present Illness: 59 year old female, with history of HLD, asthma who was admitted with right arm and leg weakness and numbness. Transferred from [facility] for CVA workup. Her carotid ultrasound is normal, no atrial fibrillation on telemetry, mri of brain showed multi lobar and bihemispheric subacute /acute ischemic stroke. - History Source History Provided By: Patient, Medical Record - Past Medical History Cardio/Vascular: Yes: Hyperlipdemia. No: AFIB Pulmonary: Yes: Asthma (as a child) - Alcohol/Substance Use Hx Alcohol Use: No - Smoking History Smoking history: Never smoked Have you smoked in the past 12 months: No Home Medications - Allergies Allergies/Adverse Reactions: Allergies Allergy/AdvReac Type Severity Reaction Status Date / Time sulfamethoxazole Allergy Rash Verified 05/14/18 06:26 [From Bactrim] trimethoprim [From Bactrim] Allergy Rash Verified 05/14/18 06:26 - Home Medications Home Medications: Ambulatory Orders NK [No Known Home Medication] 09/16/19 Vital Signs: Vital Signs Temperature 98.1 F 09/17/19 01:21 Pulse Rate 76 09/17/19 05:56 Respiratory Rate 18 09/17/19 05:56 Blood Pressure 140/62 09/17/19 05:56 O2 Sat by Pulse Oximetry (%) 100 09/16/19 21:00 Constitutional: Yes: No Distress, Calm Eyes: Yes: Conjunctiva Clear, EOM Intact HENT: Yes: Atraumatic, Normocephalic Neck: Yes: Supple, Trachea Midline Respiratory: Yes: CTA Bilaterally Gastrointestinal: Yes: Normal Bowel Sounds, Soft Cardiovascular: Yes: Regular Rate and Rhythm JVD: No Carotid Bruit: No PMI: Non-Displaced Heart Sounds: Yes: S1, S2 Extremities: Yes: WNL Edema: No Peripheral Pulses WNL: Yes - Other Data Labs, Other Data: CBC, BMP 09/16/19 05:40 09/17/19 05:57 INR, PTT INR 0.86 (0.83-1.09) 09/16/19 05:40 Fibrinogen 332.0 mg/dL (238-498) 09/17/19 05:57 Troponin, BNP 09/16/19 09/16/19 05:40 14:13 Troponin I < 0.02 < 0.03 Troponin, BNP 09/16/19 09/16/19 05:40 14:13 Troponin I < 0.02 < 0.03 Imaging - Results Cat Scan: Report Reviewed MRI: Report Reviewed EKG: Report Reviewed (nlecg) Assessment/Plan 59 year old female, with history of HLD, asthma who was admitted with right arm and leg weakness and numbness. Transferred from [facility] for CVA workup. Her carotid ultrasound is normal, no atrial fibrillation on telemetry, mri of brain showed multi lobar and bihemispheric subacute /acute ischemic stroke. Plan: -continue telemetry, may need ILR implant, or outpatient event monitor then ILR. -echo results pending. -bubble study ordered, will consider MIRTA depending on results -follow leonard haney.
--- NOTE | 2019-09-17 10:51 | CON.HO ---
Consult Consult Specialty:: Hematology Reason for Consultation:: CVA - History of Present Illness History of Present Illness: 9 year old female, with history of HLD, asthma who was admitted with right arm and leg weakness and numbness. Transferred from [facility] for CVA workup. She was feeling well when she went to sleep at 12 midnight; she awakened at 3 AM with decreased sensation in the right arm and right leg with difficulty in walking to the bathroom from right leg weakness. She also had a left-sided headache in temporal/parietal area , 6/10 intensity. Her carotid ultrasound is normal, no atrial fibrillation on telemetry, mri of brain showed multi lobar and bihemispheric subacute /acute ischemic stroke. No FH of clotting problems, does not smoke. Feeling a littel better sicne she came here. - History Source History Provided By: Patient, Medical Record - Past Medical History Cardio/Vascular: Yes: Hyperlipdemia. 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 - Allergies Allergies/Adverse Reactions: Allergies Allergy/AdvReac Type Severity Reaction Status Date / Time sulfamethoxazole Allergy Rash Verified 05/14/18 06:26 [From Bactrim] trimethoprim [From Bactrim] Allergy Rash Verified 05/14/18 06:26 - Home Medications Home Medications: Ambulatory Orders NK [No Known Home Medication] 09/16/19 Physical Exam Vital Signs: Vital Signs Temperature 98.1 F 09/17/19 01:21 Pulse Rate 74 09/17/19 10:00 Respiratory Rate 18 09/17/19 10:00 Blood Pressure 141/74 09/17/19 10:00 O2 Sat by Pulse Oximetry (%) 98 09/17/19 10:00 Labs: CBC, BMP 09/16/19 05:40 09/17/19 05:57 Assessment/Plan At age 59, without personal of family history of clotting, the CVA is most likley not genetic, but no objectioons to a workup. Sent so far and awaited are: fibrinogen, Antithrombin III, Protein S and C, APC resistance, anti-cardiolipin. She is on Heparin 5000 un bid and Ecotrin. Receommend following up with Dr. Fitzpatrick/ Aliyah to complete the workup and review as OP, and they will check the tests alrady done. Can also do Factor 5 Leiden, RWWT (anti-lupus anticoagulant), homocysteine, or can finish that as an outpatient. I discussed and explained it to the patient and she verbalized un derstanding.
[2019-09-18] MEDS ORDERED: ACETAMINOPHEN 325 MG TABLET (FP) PO ONE (00:45)
--- NOTE | 2019-09-18 00:46 | PN ---
Progress Note (short form) - Note Progress Note: Signed out by day team. Pt was having 1 pRBC infusion. Informed by nurse became mildly SOB during end of transfusion. On arrival, pt had received 3/4 of pRBC, SOB had improved and had mild crackles in R base of lungs. Pt denies having received blood transfusions in the past. Physical Gen: Lying in bed, no acute distress Pulm: R base crackles heard. No accessory muscle use. Skin: L upper extremity rash extending from axilla to L wrist. Rash was maculopapular, nonblanching, and nontender. Plan: pRBC was stopped 3/4 through transfusion Post-transfusion CBC was ordered. However pt is refusing labs, will continue to attempt labs. Benadryl 25mg IV for rash SOB improving, pt saturating well. No respiratory distress
[2019-09-18 08:06] LABS: HOMOCYSTINE-PLASMA OR SERUM 4.9 umol/L (0.0-14.5)
[2019-09-18] MEDS: HEPARIN NA (PORCINE) 5,000 UNITS/ML 1ML VIAL SQ SCH ×2 (09:59→22:26)
[2019-09-18] MEDS: ASPIRIN COATED 81 MG TABLET.EC PO SCH (09:59)
[2019-09-18] MEDS: metoPROLOL SUCCINATE 25 MG TAB.SR.24H (FP) PO SCH ×2 (09:59→22:26)
[2019-09-18] MEDS ORDERED: ACETAMINOPHEN 325 MG TABLET (FP) PO PRN (10:19)
--- NOTE | 2019-09-18 11:02 | PN ---
Progress Note, [facility]LLER - Note Progress Note: Selected Entries 09/17/19 09/17/19 09/17/19 01:21 05:56 10:00 Breakfast Lunch Supper Temperature 98.1 F Blood Pressure 131/67 140/62 141/74 09/17/19 09/17/19 09/17/19 11:56 14:05 18:29 Breakfast NPO Lunch 25% Supper Temperature 98.4 F 98.0 F Blood Pressure 114/73 122/70 09/17/19 09/17/19 09/18/19 22:00 23:16 06:00 Breakfast Lunch Supper 0 Temperature 98.2 F 97.9 F Blood Pressure 147/68 120/68 09/18/19 10:00 Breakfast Lunch Supper Temperature 98.0 F Blood Pressure 140/87 Laboratory Tests 09/16/19 09/16/19 05:40 10:28 WBC 6.3 COVID-19 (RAMÓN) Pending Delayed response reported (Family reported to nursing as baseline? now doubtful- improving!) and memory deficits reported. Pt more fluent verbally today, still with delay but definitely improved! Limited appetite but pt says she will try Ensure Chocolate. Please send
--- NOTE | 2019-09-18 11:36 | PN ---
Progress Note, Physician - Current Medication List Current Medications: Active Medications Acetaminophen (Tylenol -) 650 mg PO Q4H PRN PRN Reason: PAIN Aspirin (Ecotrin -) 81 mg PO DAILY [facility] Last Admin: 09/18/19 09:59 Dose: 81 mg Documented by: Heparin Sodium (Porcine) (Heparin -) 5,000 unit SQ BID [facility] Last Admin: 09/18/19 09:59 Dose: 5,000 unit Documented by: Metoprolol Succinate (Toprol Xl -) 12.5 mg PO BID [facility] Last Admin: 09/18/19 09:59 Dose: 12.5 mg Documented by: Polyethylene Glycol (Miralax (For Daily Use) -) 17 gm PO DAILY [facility] Last Admin: 09/17/19 09:00 Dose: Not Given Documented by: - Objective Vital Signs: Vital Signs Temperature 98.0 F 09/18/19 10:00 Pulse Rate 60 09/18/19 10:00 Respiratory Rate 18 09/18/19 10:00 Blood Pressure 140/87 09/18/19 10:00 O2 Sat by Pulse Oximetry (%) 98 09/18/19 09:00 Cardiovascular: Yes: Regular Rate and Rhythm Respiratory: Yes: Regular, CTA Bilaterally Gastrointestinal: Yes: Normal Bowel Sounds, Soft Neurological: Yes: Alert, Oriented Labs: CBC, BMP 09/16/19 05:40 09/17/19 05:57 INR, PTT INR 0.86 (0.83-1.09) 09/16/19 05:40 Fibrinogen 332.0 mg/dL (238-498) 09/17/19 05:57 Problem List - Problems (1) Cerebrovascular accident (CVA) Assessment/Plan: ASA STATIN B-BLOCKERS NEURO AND CARDIO TELE MONITORING ECHO AND CAROTID noted--MRA WITH STENOSIS--NS CONSULT LABS ORDERED R/O EMBOLIC ETIOLOGY COVID TESTING PENDING PT--CONSIDER REHAB Code(s): I63.9 - CEREBRAL INFARCTION, UNSPECIFIED Qualifiers: CVA mechanism: unspecified Qualified Code(s): I63.9 - Cerebral infarction, unspecified (2) HLD (hyperlipidemia) Assessment/Plan: ON STATIN Code(s): E78.5 - HYPERLIPIDEMIA, UNSPECIFIED
[2019-09-18] MEDS: POLYETHYLENE GLYCOL 3350 119 GM BTL PO SCH (13:03)
--- NOTE | 2019-09-18 16:15 | PN ---
Progress Note, Physician History of Present Illness: pt seen and examined today in nad. family at bedside. no overnight events. no new complaints. - Current Medication List Current Medications: Active Medications Acetaminophen (Tylenol -) 650 mg PO Q4H PRN PRN Reason: PAIN Aspirin (Ecotrin -) 81 mg PO DAILY [facility] Last Admin: 09/18/19 09:59 Dose: 81 mg Documented by: Heparin Sodium (Porcine) (Heparin -) 5,000 unit SQ BID [facility] Last Admin: 09/18/19 09:59 Dose: 5,000 unit Documented by: Metoprolol Succinate (Toprol Xl -) 12.5 mg PO BID [facility] Last Admin: 09/18/19 09:59 Dose: 12.5 mg Documented by: Polyethylene Glycol (Miralax (For Daily Use) -) 17 gm PO DAILY [facility] Last Admin: 09/18/19 13:03 Dose: 17 gm Documented by: - Objective Vital Signs: Vital Signs Temperature 98.2 F 09/18/19 14:05 Pulse Rate 63 09/18/19 14:05 Respiratory Rate 18 09/18/19 14:05 Blood Pressure 144/79 09/18/19 14:05 O2 Sat by Pulse Oximetry (%) 98 09/18/19 09:00 Constitutional: Yes: No Distress, Calm Eyes: Yes: Conjunctiva Clear, EOM Intact, PERRL HENT: Yes: Atraumatic, Normocephalic Neck: Yes: Supple, Trachea Midline Cardiovascular: Yes: Regular Rate and Rhythm, S1, S2. No: Bradycardia, Tachycardia, Pulse Irregular, Bruit, JVD, Gallop, Murmur, Rub, S3, S4, Varicosities Respiratory: Yes: Regular, CTA Bilaterally. No: Rales, Rhonchi, Wheezes Gastrointestinal: Yes: Normal Bowel Sounds, Soft. No: Distention, Tenderness Musculoskeletal: Yes: WNL Edema: No Peripheral Pulses WNL: Yes Integumentary: Yes: WNL Neurological: Yes: Alert, Oriented, Pre-Existing Deficit Psychiatric: Yes: Alert, Oriented Labs: CBC, BMP 09/16/19 05:40 09/17/19 05:57 INR, PTT INR 0.86 (0.83-1.09) 09/16/19 05:40 Fibrinogen 332.0 mg/dL (238-498) 09/17/19 05:57 - ....Imaging Chest X-ray: Report Reviewed, Image Reviewed EKG: Report Reviewed, Image Reviewed Other: Report Reviewed, Image Reviewed (tele-nsr, no arrhythmias recorded) Assessment/Plan 59 year old female, with history of HLD, asthma who was admitted with right arm and leg weakness and numbness. Transferred from [facility] for CVA workup. mri of brain showed multi lobar and bihemispheric subacute /acute ischemic stroke. Plan: -ECHO done but not scanned into system yet. 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
[2019-09-19] MEDS: ASPIRIN COATED 81 MG TABLET.EC PO SCH (09:47)
[2019-09-19] MEDS: metoPROLOL SUCCINATE 25 MG TAB.SR.24H (FP) PO SCH ×3 (09:47→21:30)
[2019-09-19] MEDS: HEPARIN NA (PORCINE) 5,000 UNITS/ML 1ML VIAL SQ SCH ×2 (09:47→21:26)
[2019-09-19] MEDS: POLYETHYLENE GLYCOL 3350 119 GM BTL PO SCH (10:00)
--- NOTE | 2019-09-19 10:50 | PN ---
Progress Note, Physician - Current Medication List Current Medications: Active Medications Acetaminophen (Tylenol -) 650 mg PO Q4H PRN PRN Reason: PAIN Aspirin (Ecotrin -) 81 mg PO DAILY [facility] Last Admin: 09/19/19 09:47 Dose: 81 mg Documented by: Heparin Sodium (Porcine) (Heparin -) 5,000 unit SQ BID [facility] Last Admin: 09/19/19 09:47 Dose: 5,000 unit Documented by: Metoprolol Succinate (Toprol Xl -) 12.5 mg PO BID [facility] Last Admin: 09/19/19 09:47 Dose: 12.5 mg Documented by: Polyethylene Glycol (Miralax (For Daily Use) -) 17 gm PO DAILY [facility] Last Admin: 09/18/19 13:03 Dose: 17 gm Documented by: - Objective Vital Signs: Vital Signs Temperature 97.7 F 09/19/19 10:00 Pulse Rate 64 09/19/19 10:00 Respiratory Rate 22 H 09/19/19 10:00 Blood Pressure 125/73 09/19/19 10:00 O2 Sat by Pulse Oximetry (%) 97 09/19/19 09:00 Cardiovascular: Yes: Regular Rate and Rhythm Respiratory: Yes: Regular, CTA Bilaterally Gastrointestinal: Yes: Normal Bowel Sounds, Soft Labs: CBC, BMP 09/16/19 05:40 09/17/19 05:57 INR, PTT INR 0.86 (0.83-1.09) 09/16/19 05:40 Fibrinogen 332.0 mg/dL (238-498) 09/17/19 05:57 Problem List - Problems (1) Cerebrovascular accident (CVA) Assessment/Plan: ASA STATIN B-BLOCKERS NEURO AND CARDIO TELE MONITORING ECHO results noted CAROTID noted--MRA WITH STENOSIS--NS CONSULT LABS ORDERED R/O EMBOLIC ETIOLOGY COVID TESTING PENDING PT--CONSIDER REHAB Code(s): I63.9 - CEREBRAL INFARCTION, UNSPECIFIED Qualifiers: CVA mechanism: unspecified Qualified Code(s): I63.9 - Cerebral infarction, unspecified (2) HLD (hyperlipidemia) Assessment/Plan: ON STATIN Code(s): E78.5 - HYPERLIPIDEMIA, UNSPECIFIED
--- NOTE | 2019-09-19 16:55 | PN ---
Progress Note, Physician History of Present Illness: seen and examined today in [facility]. no overnight events. no new complaints. - Current Medication List Current Medications: Active Medications Acetaminophen (Tylenol -) 650 mg PO Q4H PRN PRN Reason: PAIN Aspirin (Ecotrin -) 81 mg PO DAILY [facility] Last Admin: 09/19/19 09:47 Dose: 81 mg Documented by: Heparin Sodium (Porcine) (Heparin -) 5,000 unit SQ BID [facility] Last Admin: 09/19/19 09:47 Dose: 5,000 unit Documented by: Metoprolol Succinate (Toprol Xl -) 12.5 mg PO BID [facility] Last Admin: 09/19/19 09:47 Dose: 12.5 mg Documented by: Polyethylene Glycol (Miralax (For Daily Use) -) 17 gm PO DAILY [facility] Last Admin: 09/18/19 13:03 Dose: 17 gm Documented by: - Objective Vital Signs: Vital Signs Temperature 98.0 F 09/19/19 14:00 Pulse Rate 67 09/19/19 14:00 Respiratory Rate 22 H 09/19/19 14:00 Blood Pressure 117/71 09/19/19 14:00 O2 Sat by Pulse Oximetry (%) 97 09/19/19 09:00 Constitutional: Yes: No Distress, Calm Eyes: Yes: Conjunctiva Clear, EOM Intact, PERRL HENT: Yes: Atraumatic, Normocephalic Neck: Yes: Supple, Trachea Midline Cardiovascular: Yes: Regular Rate and Rhythm, S1, S2. No: Bradycardia, Tachycardia, Pulse Irregular, Bruit, JVD, Gallop, Murmur, Rub, S3, S4, Varicosities Respiratory: Yes: Regular, CTA Bilaterally. No: Rales, Rhonchi, Wheezes Gastrointestinal: Yes: Normal Bowel Sounds, Soft. No: Distention, Tenderness Extremities: Yes: WNL Edema: No Peripheral Pulses WNL: Yes Peripheral Pulses: Left Doralis Pedis: 2+, Right Dorsalis Pedis: 2+ Neurological: Yes: Alert, Oriented Psychiatric: Yes: Alert, Oriented Labs: CBC, BMP 09/16/19 05:40 09/17/19 05:57 INR, PTT INR 0.86 (0.83-1.09) 09/16/19 05:40 Fibrinogen 332.0 mg/dL (238-498) 07/02/20 05:57 - ....Imaging Chest X-ray: Report Reviewed, Image Reviewed EKG: Report Reviewed, Image Reviewed Other: Report Reviewed, Image Reviewed (tele-nsr, no arrhythmias) Assessment/Plan 59 year old female, with history of HLD, asthma who was admitted with right arm and leg weakness and numbness. Transferred from [facility] for CVA workup. mri of brain showed multi lobar and bihemispheric subacute /acute ischemic stroke. Plan: -ECHO done but not scanned into system yet. reported as wnl with intact interatrial septum/no intracardiac shunt seen -tele reviewed-nsr, no afib or aflutter recorded -MRA brain results noted with occluded/severe stenosis L posterior cerebellar artery and L posterior cerebral artery -Neurosurgery was consulted -would not recommend MIRTA at this time given above MRA findings and risk associated with anesthesia (ie hypotension and decreased perfusion) -MIRTA can be reconsidered as outpatient -would recommend outpatient extended event monitor and if no arrhythmias found then would recommend ILR implant for longer term event monitoring -follow hypercoag haney. pt acceptable for discharge from a cardiac standpoint with plan for event monitor as outpatient.
[2019-09-20] MEDS: metoPROLOL SUCCINATE 25 MG TAB.SR.24H (FP) PO SCH ×2 (09:43→21:56)
[2019-09-20] MEDS: ASPIRIN COATED 81 MG TABLET.EC PO SCH (09:43)
[2019-09-20] MEDS: HEPARIN NA (PORCINE) 5,000 UNITS/ML 1ML VIAL SQ SCH ×2 (09:43→21:57)
[2019-09-20] MEDS: POLYETHYLENE GLYCOL 3350 119 GM BTL PO SCH (10:00)
[2019-09-20] MEDS ORDERED: ATORVASTATIN CA 40 MG TABLET (FP) PO ONE (10:16)
--- NOTE | 2019-09-20 10:16 | PN ---
Progress Note, Physician - Current Medication List Current Medications: Active Medications Acetaminophen (Tylenol -) 650 mg PO Q4H PRN PRN Reason: PAIN Aspirin (Ecotrin -) 81 mg PO DAILY [facility] Last Admin: 09/20/19 09:43 Dose: 81 mg Documented by: Heparin Sodium (Porcine) (Heparin -) 5,000 unit SQ BID [facility] Last Admin: 09/20/19 09:43 Dose: 5,000 unit Documented by: Metoprolol Succinate (Toprol Xl -) 12.5 mg PO BID [facility] Last Admin: 09/20/19 09:43 Dose: 12.5 mg Documented by: Polyethylene Glycol (Miralax (For Daily Use) -) 17 gm PO DAILY [facility] Last Admin: 09/19/19 10:00 Dose: Not Given Documented by: - Objective Vital Signs: Vital Signs Temperature 97.6 F 09/20/19 09:00 Pulse Rate 59 L 09/20/19 09:00 Respiratory Rate 22 H 09/20/19 09:00 Blood Pressure 122/66 09/20/19 09:00 O2 Sat by Pulse Oximetry (%) 99 09/20/19 09:00 Labs: CBC, BMP 09/16/19 05:40 09/17/19 05:57 INR, PTT INR 0.86 (0.83-1.09) 09/16/19 05:40 Fibrinogen 332.0 mg/dL (238-498) 09/17/19 05:57 Problem List - Problems (1) Cerebrovascular accident (CVA) Code(s): I63.9 - CEREBRAL INFARCTION, UNSPECIFIED Qualifiers: CVA mechanism: unspecified Qualified Code(s): I63.9 - Cerebral infarction, unspecified (2) HLD (hyperlipidemia) Code(s): E78.5 - HYPERLIPIDEMIA, UNSPECIFIED
--- NOTE | 2019-09-20 12:48 | PN ---
Progress Note, Physician - Current Medication List Current Medications: Active Medications Acetaminophen (Tylenol -) 650 mg PO Q4H PRN PRN Reason: PAIN Aspirin (Ecotrin -) 81 mg PO DAILY [facility] Last Admin: 09/20/19 09:43 Dose: 81 mg Documented by: Atorvastatin Calcium (Lipitor -) 40 mg PO HS [facility] Heparin Sodium (Porcine) (Heparin -) 5,000 unit SQ BID [facility] Last Admin: 09/20/19 09:43 Dose: 5,000 unit Documented by: Metoprolol Succinate (Toprol Xl -) 12.5 mg PO BID [facility] Last Admin: 09/20/19 09:43 Dose: 12.5 mg Documented by: Polyethylene Glycol (Miralax (For Daily Use) -) 17 gm PO DAILY [facility] Last Admin: 09/19/19 10:00 Dose: Not Given Documented by: - Objective Vital Signs: Vital Signs Temperature 97.6 F 09/20/19 09:00 Pulse Rate 59 L 09/20/19 09:00 Respiratory Rate 22 H 09/20/19 09:00 Blood Pressure 122/66 09/20/19 09:00 O2 Sat by Pulse Oximetry (%) 99 09/20/19 09:00 Cardiovascular: Yes: Regular Rate and Rhythm Respiratory: Yes: Regular, CTA Bilaterally Gastrointestinal: Yes: Normal Bowel Sounds, Soft. No: Tenderness Neurological: Yes: Alert, Oriented Labs: CBC, BMP 09/16/19 05:40 09/17/19 05:57 INR, PTT INR 0.86 (0.83-1.09) 09/16/19 05:40 Fibrinogen 332.0 mg/dL (238-498) 09/17/19 05:57 Problem List - Problems (1) Cerebrovascular accident (CVA) Assessment/Plan: ASA STATIN B-BLOCKERS NEURO Follow up CARDIO APPRECIATED TELE MONITORING ECHO results noted CAROTID noted--MRA WITH STENOSIS--NS CONSULT LABS ORDERED R/O EMBOLIC ETIOLOGY COVID TESTING PENDING PT--CONSIDER REHAB Code(s): I63.9 - CEREBRAL INFARCTION, UNSPECIFIED Qualifiers: CVA mechanism: unspecified Qualified Code(s): I63.9 - Cerebral infarction, unspecified (2) HLD (hyperlipidemia) Assessment/Plan: ON STATIN Code(s): E78.5 - HYPERLIPIDEMIA, UNSPECIFIED
--- NOTE | 2019-09-20 13:19 | CONSULT ---
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 She had associated Right arm and leg weakness. The patient noted new onset Left sided headaches in the temporal/parietal regions. Although she had been tested negative for COVID-19, this was not recent and she was treated as presumptive COVID positive. I saw her first on and noted that she was awake and alert and was eating her lunch. I reviewed her Brain MRI/MRA as well as Head CT and noted the new infarctions in the Left hippocampal gyrus and Left cerebellar hemisphere which are consistent with the Left Vertebral Artery stenosis noted on MRA. I planned to see her Saturday once her COVID status was confirmed. I had a long discussion with her on Saturday and we discussed how her deficits had largely resolved and she was able to ambulate and converse as well as carry out most of her activities of daily living without difficulty. Although the Left vertebral artery stenosis may explain both of these infarcts, since they are in separate terminal vessel territories, ruling out of embolic phenomena is appropriate and the patient has a Holter monitor to evaluate potential arrythmias. When encountered on Friday September 20, 2019, the patient continues to be in good spirits with good Right arm and leg function and less weakness/numbness. She is now aware of potential visual field cut and it would be appropriate to assess her formal visual bolanos as an outpatient. Although Cerebellar infarction may represent a Neurosurgical emergency, she has never had mass effect on the fourth ventricle or tonsilar descent suggestive of concerning posterior fossa mass effect. She is also more than 72 hours from onset and presumably will not have substantial additional mass effect from these infarctions and she appears to have resolving, rather than progressing, symptoms, further suggesting that her current episode is self limited. Anticoagulation under the auspices of Neurology and Cardiology as well as Holter evaluation would appear to be the next steps in her care and in prevention of future infarcts. Statin treatment and catheter angiography may also be considered. Rehabilitation and Physical Therapy may also have a role in her care. All questions were answered. No acute Neurosurgical intervention is currently planned.
--- NOTE | 2019-09-20 15:55 | PN ---
Progress Note, Physician History of Present Illness: pt seen and examined today in nad. sister at bedside. notes brief episode of palpitations last night 10pm corresponding with brief psvt. - Current Medication List Current Medications: Active Medications Acetaminophen (Tylenol -) 650 mg PO Q4H PRN PRN Reason: PAIN Aspirin (Ecotrin -) 81 mg PO DAILY [facility] Last Admin: 09/20/19 09:43 Dose: 81 mg Documented by: Atorvastatin Calcium (Lipitor -) 40 mg PO HS [facility] Heparin Sodium (Porcine) (Heparin -) 5,000 unit SQ BID [facility] Last Admin: 09/20/19 09:43 Dose: 5,000 unit Documented by: Metoprolol Succinate (Toprol Xl -) 12.5 mg PO BID [facility] Last Admin: 09/20/19 09:43 Dose: 12.5 mg Documented by: Polyethylene Glycol (Miralax (For Daily Use) -) 17 gm PO DAILY [facility] Last Admin: 09/19/19 10:00 Dose: Not Given Documented by: - Objective Vital Signs: Vital Signs Temperature 97.6 F 09/20/19 09:00 Pulse Rate 59 L 09/20/19 09:00 Respiratory Rate 22 H 09/20/19 09:00 Blood Pressure 122/66 09/20/19 09:00 O2 Sat by Pulse Oximetry (%) 99 09/20/19 09:00 Constitutional: Yes: No Distress, Calm Eyes: Yes: Conjunctiva Clear, EOM Intact HENT: Yes: Atraumatic, Normocephalic Neck: Yes: Supple, Trachea Midline Cardiovascular: Yes: Regular Rate and Rhythm, S1, S2. No: Bradycardia, Tachycardia, Pulse Irregular, Bruit, JVD, Gallop, Murmur, Rub, S3, S4, Varicosities Respiratory: Yes: Regular, CTA Bilaterally. No: Rales, Rhonchi, Wheezes Gastrointestinal: Yes: Normal Bowel Sounds, Soft. No: Distention, Tenderness Musculoskeletal: Yes: WNL Extremities: Yes: WNL Edema: No Peripheral Pulses WNL: Yes Peripheral Pulses: Left Doralis Pedis: 2+, Right Dorsalis Pedis: 2+ Neurological: Yes: Alert, Oriented Psychiatric: Yes: Alert, Oriented Labs: CBC, BMP 09/16/19 05:40 09/17/19 05:57 INR, PTT INR 0.86 (0.83-1.09) 09/16/19 05:40 Fibrinogen 332.0 mg/dL (238-498) 09/17/19 05:57 - ....Imaging Chest X-ray: Report Reviewed, Image Reviewed EKG: Report Reviewed, Image Reviewed Other: Report Reviewed, Image Reviewed (tele-nsr, brief episode psvt 09/19/19) Assessment/Plan 59 year old female, with history of HLD, asthma who was admitted with right arm and leg weakness and numbness. Transferred from [facility] for CVA workup. mri of brain showed multi lobar and bihemispheric subacute /acute ischemic stroke. Plan: -ECHO done 09/17 but not scanned into system yet. reported as wnl with intact interatrial septum/no intracardiac shunt seen -tele reviewed-nsr, brief episode of psvt 09/18, no afib or aflutter recorded -MRA brain results noted with occluded/severe stenosis L posterior cerebellar artery and L posterior cerebral artery -Neurosurgery evaluated -would not recommend MIRTA at this time given above MRA findings and risk associated with anesthesia (ie hypotension and decreased perfusion) -MIRTA can be reconsidered as outpatient -would recommend outpatient extended event monitor and if no arrhythmias found then would recommend ILR implant for longer term event monitoring -follow hypercoag haney. pt acceptable for discharge from a cardiac standpoint with plan for event monitor as outpatient.
[2019-09-20 17:11] LABS: PROTEIN S, FREE 100 % (57-157)
--- NOTE | 2019-09-21 07:06 | ECHO ---
Name: CONSTANCE DEBOCALEBHOA P Exam:Adult Echocardiogram Study Date: 09/17/2019 09:13 AM Age: 59 yrs MMode/2D Measurements & Calculations IVSd: 1.2 cm Ao root diam: 2.8 cm LVIDd: 4.0 cm LA dimension: 3.1 cm LVIDs: 2.6 cm LVPWd: 1.2 cm LVPWs: 1.6 cm EDV(Teich): 70.9 ml ESV(Teich): 25.3 ml LVOT diam: 1.8 cm TAPSE: 2.7 cm RV S Danielito: 11.5 cm/sec Doppler Measurements & Calculations MV E max danielito: 81.4 cm/sec Ao V2 max: 169.0 cm/sec MV A max danielito: 65.6 cm/sec Ao max P.4 mmHg MV E/A: 1.2 VANESA(V,D): 1.6 cm2 MV dec time: 0.16 sec LV V1 max P.0 mmHg MR max danielito: 270.1 cm/sec LV V1 max: 100.2 cm/sec MR max P.2 mmHg TR max danielito: 235.5 cm/sec PA V2 max: 111.3 cm/sec TR max P.3 mmHg PA max P.0 mmHg PI end-d danielito: 107.2 cm/sec Med Peak E' Danielito: 6.4 cm/sec Med E/e': 12.8 Lat Peak E' Danielito: 9.9 cm/sec Lat E/e': 8.3 Procedure A complete two-dimensional transthoracic echocardiogram was performed (2D, M-mode, Doppler and color flow Doppler). Left Ventricle The left ventricular size, thickness and function are normal. Ejection Fraction = 65-70%. The left ve ntricular wall motion is normal. Right Ventricle The right ventricle is normal in size and function. Atria Normal left and right atrial size and function. The interatrial septum is intact with no evidence for an atrial septal defect. Mitral Valve There is no mitral regurgitation noted. Tricuspid Valve There is trace tricuspid regurgitation. Right ventricular systolic pressure is normal. Aortic Valve The aortic valve is trileaflet. No hemodynamically significant valvular aortic stenosis. No aortic regurgitation is present. Pulmonic Valve There is no pulmonic valvular regurgitation. Great Vessels The aortic root is normal size. Pericardium/Pleura There is no pericardial effusion. Interpretation Summary The left ventricular size, thickness and function are normal The right ventricle is normal in size and function. There is trace tricuspid regurgitation. MD Master Diaz 09/17/2019 12:14 PM
--- NOTE | 2019-09-21 09:11 | DS ---
Physical Examination Vital Signs: Vital Signs Temperature 97.9 F 09/21/19 05:00 Pulse Rate 61 09/21/19 05:00 Respiratory Rate 14 09/21/19 05:00 Blood Pressure 120/64 09/21/19 05:00 O2 Sat by Pulse Oximetry (%) 100 09/20/19 21:00 Labs: CBC, BMP 09/16/19 05:40 09/17/19 05:57 Discharge Summary Problems reviewed: Yes Reason For Visit: WEAKNESS RIGHT ARM AND LEG/HEADACHE Current Active Problems Cerebrovascular accident (CVA) (Acute) HLD (hyperlipidemia) (Acute) Hospital Course: - Problems (1) Cerebrovascular accident (CVA) Assessment/Plan: ASA STATIN B-BLOCKERS NEURO Follow up CARDIO APPRECIATED TELE MONITORING ECHO results noted CAROTID noted--MRA WITH STENOSIS--NS CONSULT appreciated LABS ORDERED R/O EMBOLIC ETIOLOGY COVID TESTING PENDING PT--CONSIDER REHAB Code(s): I63.9 - CEREBRAL INFARCTION, UNSPECIFIED Qualifiers: CVA mechanism: unspecified Qualified Code(s): I63.9 - Cerebral infarction, unspecified (2) HLD (hyperlipidemia) Assessment/Plan: ON STATIN Code(s): E78.5 - HYPERLIPIDEMIA, UNSPECIFIED Condition: Improved - Instructions Referrals: Jose C Welsh MD [Staff Physician] - 1 Week Serafin Pham MD [Non Staff, Medical] - Disposition: VNS/HOME HEALTH CARE - Home Medications Comprehensive Discharge Medication List: Ambulatory Orders Acetaminophen [Tylenol .Regular Strength -] 650 mg PO Q4H PRN tablet 09/21/19 Aspirin Coated [Ecotrin -] 81 mg PO DAILY tablet.ec 09/21/19 Atorvastatin Ca [Lipitor] 40 mg PO HS #30 tablet 09/21/19 Metoprolol Succinate [Toprol XL -] 12.5 mg PO BID #60 tab.sr.24h 09/21/19 Polyethylene Glycol 3350 [Miralax 119 gm Btl -] 17 gm PO DAILY bottle 09/21/19
[2019-09-21] MEDS: HEPARIN NA (PORCINE) 5,000 UNITS/ML 1ML VIAL SQ SCH (09:59)
[2019-09-21] MEDS: ASPIRIN COATED 81 MG TABLET.EC PO SCH (10:00)
[2019-09-21] MEDS: metoPROLOL SUCCINATE 25 MG TAB.SR.24H (FP) PO SCH (10:00)
[2019-09-21] MEDS: POLYETHYLENE GLYCOL 3350 119 GM BTL PO SCH (10:08)
--- NOTE | 2019-09-21 10:43 | PN ---
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 She went to bed on september 14 , she was fine. She woke up in morning of september 15, and she has numbness and weakness. sEH ALSO AHVE DIFFICULTY OF WALKING.She also have headhace and feeling dizziness. She was recently tested covid negative. Patient was feeling spinning senstion. Her ct head negative . Patient has been feeling better, and echo was normal ( inital report) road monkey did not recommend HUDSON at this time, holter did not show atrial fibrillation and covid pending NEUROLOGICAL EXAMINATION Alert oriented x 3, neck is supple vss eomi, pupils reactive no face asymmetry There is mild sensory dysthesia on right arm and leg very minimal weakness of right arm and leg weakness( seems to be resolvign ct head unremarkable mri of brain showed bihemispheric , multi lobar acute/subacute ischemic changes Assessment/plan 59 year old female , with history of HLD, Ashma.came with right arm and leg weakness and numbness and symptoms seems to be resolving. carotid ultrasound is normal, no atrial fibrillation, mri of brain showed multi lobar and bihemispheric subacute /acute ischemic stroke. holter has been negative for atrial fibrillation, covid pending, hudson is not recommended by [employer] - Plan: continue apsirin and statin, consider switching her to plavix , awaiting covid results - can be discharged home and follow up outpatient - pt, speech and dvt prophylaxis - follow up with road monkey for possible HUDSON, Loop recording Thanking you so much Leonard Marvin MD
[2019-09-21 11:04] VITALS: PULSE 73
--- NOTE | 2019-09-21 12:43 | PN ---
Progress Note, Physician Chief Complaint: No distress History of Present Illness: This is a 59 year old female with a PMH of HLD and asthma. She presented with right arm and leg weakness and numbness. She was transferred from [facility] for a CVA workup. MRI of the brain showed multilobar and bihemispheric subacute /acute ischemic stroke. - Current Medication List Current Medications: Active Medications Acetaminophen (Tylenol -) 650 mg PO Q4H PRN PRN Reason: PAIN Aspirin (Ecotrin -) 81 mg PO DAILY [facility] Last Admin: 09/21/19 10:00 Dose: 81 mg Documented by: Atorvastatin Calcium (Lipitor -) 40 mg PO HS [facility] Heparin Sodium (Porcine) (Heparin -) 5,000 unit SQ BID [facility] Last Admin: 09/21/19 09:59 Dose: 5,000 unit Documented by: Metoprolol Succinate (Toprol Xl -) 12.5 mg PO BID [facility] Last Admin: 09/21/19 10:00 Dose: 12.5 mg Documented by: Polyethylene Glycol (Miralax (For Daily Use) -) 17 gm PO DAILY [facility] Last Admin: 09/21/19 10:08 Dose: Not Given Documented by: - Objective Vital Signs: Vital Signs Temperature 97.4 F L 09/21/19 09:00 Pulse Rate 73 09/21/19 09:00 Respiratory Rate 24 H 09/21/19 09:00 Blood Pressure 145/73 09/21/19 09:00 O2 Sat by Pulse Oximetry (%) 97 09/21/19 09:00 Constitutional: Yes: No Distress HENT: Yes: WNL Neck: Yes: WNL Cardiovascular: Yes: Regular Rate and Rhythm, S3, S4 Respiratory: Yes: CTA Bilaterally Gastrointestinal: Yes: Soft Edema: No Labs: CBC, BMP 09/16/19 05:40 09/17/19 05:57 INR, PTT INR 0.86 (0.83-1.09) 09/16/19 05:40 Fibrinogen 332.0 mg/dL (238-498) 09/17/19 05:57 Assessment/Plan 59 year old female with a PMH of HLD and asthma. She presented with right arm and leg weakness and numbness. She was transferred from [facility] for a CVA workup. MRI of the brain showed multilobar and bihemisphericsubacute /acute ischemic stroke. Echocardiogram 09/17/2019 Normal LV size and function Normal RV size and funtion EF 65-70% Tele reviewed-nsr, brief episode of psvt 09/18, no afib or aflutter recorded MRA brain results noted with occluded/severe stenosis L posterior cerebellar artery and L posterior cerebral artery Would not recommend MIRTA at this time given above MRA findings and risk associated with anesthesia (ie hypotension and decreased perfusion) Should have cardiology outpatient follow up to consider meterman monitoring such as extended telem Patch monitoring of an ILR
[2019-09-21 14:41] VITALS: BP 134/79; TEMP 98.4
[2019-09-21] MEDS ORDERED: ATORVASTATIN CA 40 MG TABLET (FP) PO SCH (22:00)
--- NOTE | 2019-09-21 22:23 | PN ---
Progress Note (short form) - Note Progress Note: patient stable wincing. No complaints. No neurosurgical contraindication to discharge at this point. Will defer to neurology and cardiology with regards to further anticoagulation. Case discussed with Dr. Welsh. Patient given contact information for follow up as an outpatient.
== END 2019-09-21 15:12 | disposition home health service (06) | DRG 65 ==
LOC: FER 04:54 → J4W 17:23 → FER 18:30 → J4W 18:35
PROVIDERS: ADMIT Family Medicine; ATTEND Family Medicine
DX: I63.9 Cerebral infarction, unspecified (principal); G81.91 Hemiplegia, unspecified affecting right dominant side; E78.5 Hyperlipidemia, unspecified
CPT/HCPCS: 36415; 70450-TC; 70544-TC; 70551-TC; 80053; 80061; 81240; 82550; 83036; 83090; 83721; 84443; 84484; 85025; 85300; 85302; 85305; 85306; 85307; 85384; 85610; 93005; 93306-TC; 93880-TC; 97116-GP; 97161-GP; 99285-25; J0131; J1644; U0003

== ENCOUNTER 2020-09-07 18:47 | Emergency (ER) | payer BC ==
[2020-09-07 18:52] VITALS: BP 155/85; PULSE 66; TEMP 98.3; BMI 26.9
[2020-09-07] MEDS ORDERED: LIDOCAINE HCL 1%, 10 MG/ML (50 mL VIAL) INF ONE (20:07)
[2020-09-07] MEDS ORDERED: BUPIVACAINE HCL 0.5% 250 MG/50 ML VIAL IV ONE (20:08)
[2020-09-07] MEDS ORDERED: LIDOCAINE HCL 2% (20ML MULTI-DOSE VIAL) ONE (20:08)
[2020-09-07] MEDS ORDERED: BUPIVACAINE HCL 50 ML ONE (20:09)
[2020-09-07] MEDS ORDERED: IBUPROFEN 400 MG TABLET (FP) PO ONE ×2 (20:14→20:17)
== END 2020-09-07 22:43 | disposition home or self-care (01) ==
LOC: JER 18:47
PROC: 3E033GC Introduction of Other Therapeutic Substance into Peripheral Vein, Percutaneous Approach (ICD-10-PCS; principal; 2020-09-07)
DX: S52.502A Unspecified fracture of the lower end of left radius, initial encounter for closed fracture (principal); S52.615A Nondisplaced fracture of left ulna styloid process, initial encounter for closed fracture
CPT/HCPCS: 73090-TC-LT-FY; 73110-TC-LT-FY; 73130-TC-LT-FY; 99285-25

== ENCOUNTER 2020-09-15 06:14 | Day surgery (SDC) | payer BC ==
[2020-09-13 16:00] VITALS: BMI 26.9
[2020-09-15] MEDS ORDERED: MIDAZOLAM HCL 2 MG/2 ML SINGLE DOSE VIAL ONE ×2 (07:05→07:23)
[2020-09-15] MEDS ORDERED: ROPIVACAINE HCL 0.5% 30ML VIAL ONE (07:05)
[2020-09-15] MEDS ORDERED: PROPOFOL 20 ML ONE ×2 (07:25→08:27)
[2020-09-15] MEDS ORDERED: LIDOCAINE HCL/PF 2% SDV 5ML VIAL ONE (07:26)
[2020-09-15] MEDS ORDERED: DEXAMETHASONE SOD PHOSPHATE 4 MG/1 ML VIAL ONE (07:26)
[2020-09-15] MEDS ORDERED: KETOROLAC TROMETHAMINE 30 MG/1 ML VIAL ONE (07:26)
[2020-09-15] MEDS ORDERED: ONDANSETRON 4 MG/2 ML VIAL ONE (07:26)
[2020-09-15] MEDS ORDERED: SUCCINYLCHOLINE CHLORIDE 200 MG/10 ML SYRINGE ONE (07:27)
[2020-09-15] MEDS ORDERED: ONDANSETRON 4 MG/2 ML VIAL IVPUSH PRN (07:53)
[2020-09-15] MEDS ORDERED: oxyCODONE HCL 5 MG TABLET PO PRN ×2 (07:53)
[2020-09-15] MEDS ORDERED: LACTATED RINGERS SOLUTION 1,000 ML IV SCH (08:00)
[2020-09-15] MEDS ORDERED: ACETAMINOPHEN 325 MG TABLET (FP) PO SCH (08:00)
[2020-09-15] MEDS ORDERED: ceFAZolin SODIUM 1 GM VIAL ONE (08:28)
[2020-09-15] MEDS ORDERED: SODIUM CHLORIDE 0.9% P/F 10 ML VIAL IJ ONE (08:28)
[2020-09-15] MEDS ORDERED: oxyCODONE HCL 10 MG SUSTAINED ACTING TABLET PO SCH (10:00)
[2020-09-15 11:26] VITALS: TEMP 98.2
[2020-09-15 12:36] VITALS: BP 116/64; PULSE 64
== END 2020-09-15 12:37 | disposition home or self-care (01) ==
LOC: FASU 06:14
PROVIDERS: ATTEND Orthopaedic Surgery
PROC: 0LN60ZZ Release Left Lower Arm and Wrist Tendon, Open Approach (ICD-10-PCS; 2020-09-15)
PROC: 0PSJ04Z Reposition Left Radius with Internal Fixation Device, Open Approach (ICD-10-PCS; principal; 2020-09-15 08:37)
DX: S52.572A Other intraarticular fracture of lower end of left radius, initial encounter for closed fracture (principal); X58.XXXA Exposure to other specified factors, initial encounter; Y93.9 Activity, unspecified; Y92.9 Unspecified place or not applicable
CPT/HCPCS: 25290; 25609; C1713; 73110-TC-LT-FY; 94760